=== PATIENT | female | born 1965 | race Caucasian/White ===

== ENCOUNTER 2018-05-20 14:32 | Emergency (ER) | payer OTHER ==
[2018-05-20] MEDS ORDERED: IPRATROPIUM/ALBUTEROL 3 ML DEYVIAL IH ONE (14:41)
--- NOTE | 2018-05-20 15:12 | EDPHY ---
H & P Stated Complaint: Last 2 nocs Time Seen by Provider: 05/20/18 14:55 HPI/ROS: Chief Complaint: Shortness of breath HPI: 52-year-old woman history of asthma presenting with worsening shortness of breath the last well days. Patient recently ran out of her control inhalers about 2 weeks ago. She saw her physician earlier this week and has a prescription for Advair waiting for her but is not been filled by the pharmacy.. She has had worsening shortness of breath today. She has been increasing use of her rescue inhaler. She does typically use a spacer when she is at home but does not happen at work. Today she has had worsening cough and tightness in her chest. Cough is nonproductive. No fevers or chills. No nausea or vomiting. No chest pain. ROS: 10 point Review of Systems is negative except as noted in the HPI. PMH: Asthma Social History: No smoking, no alcohol, no recreational drug use Family History: non-contributory Physical Exam: Gen: Awake, Alert, No Distress HEENT: Nose: no rhinorrhea Eyes: PERRLA, EOMI Mouth: Moist mucosa Neck: Supple, no JVD Chest: nontender, diffuse expiratory wheezing Heart: S1, S2 normal, no murmur Abd: Soft, non-tender, no guarding Back: no CVA tenderness, no midline tenderness Ext: no edema, non-tender Skin: no rash Neuro: CN II-XII intact, Sensation grossly intact, Strength 5/5 in bilateral upper and lower extremities - Medical/Surgical History Hx Asthma: Yes Hx Chronic Respiratory Disease: No Hx Diabetes: No Hx Cardiac Disease: No Hx Renal Disease: No Hx Cirrhosis: No Hx Alcoholism: No Hx HIV/AIDS: No Hx Splenectomy or Spleen Trauma: No Other PMH: Med hx-asthma Constitutional: Initial Vital Signs Temperature (C) 37.0 C 05/20/18 14:44 Heart Rate 102 H 05/20/18 14:44 Respiratory Rate 16 05/20/18 14:44 Blood Pressure 126/87 H 05/20/18 14:44 O2 Sat (%) 95 05/20/18 14:44 O2 Delivery Mode Room Air Allergies/Adverse Reactions: NSAIDS (Non-Steroidal Anti-Inflamma Allergy (Verified 05/20/18 14:38) Penicillins Allergy (Verified 05/20/18 14:39) Ntoohds-Mhx-Jkq Reductase Inhibitor Allergy (Verified 05/20/18 14:39) Home Medications: Medication Instructions Recorded Advair 250/50 (*) 05/20/18 Dymista Nasal [place] 05/20/18 Symbicort 80-4.5 Mcg Inhaler 05/20/18 Ventolin Hfa 05/20/18 Zyrtec 05/20/18 predniSONE 60 mg PO DAILY #9 tab 05/20/18 Medical Decision Making ED Course/Re-evaluation: Patient is feeling significantly improved after DuoNeb. Lungs are clear. She says she feels at her baseline. She has confirmed that the pharmacy now has her Advair and her Singulair in stock. Given her exacerbation on a put on a 3 day course of prednisone until her Advair has a chance to take full effect again. I have also given her spacer for use while she is out of the house. She will follow up with primary care physician for any concerns, she will return if her breathing should worsen. Patient questions have been answered. She is in full agreement with the plan. - Data Points Medications Given: Discontinued Medications Albuterol/Ipratropium (Duoneb) 3 ml EDNOW ONE Stop: 05/20/18 14:42 Last Admin: 05/20/18 14:46 Dose: 3 ml Departure - Departure Disposition: Home, Routine, Self-Care Clinical Impression: Exacerbation of asthma Condition: Good Instructions: Asthma (ED) Additional Instructions: Please use a spacer every time you use your inhaler. You may resume your normal medications. Please complete a 3 day course of prednisone as prescribed. Return to the emergency department for increasing shortness of breath, fevers, cough, or any other concerns. Referrals: Hoa Hogan, OPERATIONS RESEARCH ANALYST [Primary Care Provider] - As per Instructions Prescriptions: predniSONE 60 mg PO DAILY #9 tab
[2018-05-20 15:22] VITALS: BP 103/69
== END 2018-05-20 15:21 | disposition home or self-care (01) ==
LOC: CED 14:32
DX: J45.901 Unspecified asthma with (acute) exacerbation (principal)

== ENCOUNTER 2019-04-18 00:33 | Emergency (ER) | payer OTHER ==
[2019-04-18] MEDS ORDERED: NS 1,000 ML IV ONE (01:35)
--- NOTE | 2019-04-18 01:42 | EDPHY ---
H & P Stated Complaint: Chest tighness tonight a few hours ago. Ongoing palpitations since 1 week Time Seen by Provider: 04/18/19 00:44 HPI/ROS: CC: Chest tightness x 3.5 hours HPI: This 53-year-old female with past medical history of asthma and PACs as well as chronic pain presents to emergency department tonight complaining of chest tightness that started at approximately 9:00 p.m. this evening. It was in her mid chest and she rated it at 2 to 3/10. It was a squeezing sensation. She felt slightly short of breath. She had intermittent sweating. She has chronic left bicep pain and noticed that this evening as well but does not know if it was associated with the pain. By left in p.m. She began to get worried and asked her to bring her to the emergency room. She has been having more fluttering in her chest for the last week and especially so over this weekend. She does note that she started using a different type of CBD oil containing a small amount of THC which her noted was 100 time stronger than what she had been taking. She was taking this twice a day and thought this might be contributing to the increased PACs and therefore discontinued yesterday. She also took a new multivitamin turmeric supplement a couple times of this week. She has not been ill recently although her children have been sick, 1 with strep and 1 with a GI infection. She ate dinner at 6:30 a.m. This evening consisting of some dried tomatoes over chicken with a cold neck cream sauce but states she has had this many times and she does not get heartburn. She has no new calf pain or swelling and no recent travel. She has alcohol 2-3 times per week her last alcoholic beverage a couple of days ago. She drinks multiple servings of caffeinated beverages per day. REVIEW OF SYSTEMS: Constitutional: No fever, no chills. Eyes: No discharge. ENT: No sore throat. Respiratory: No cough. See HPI. Cardiac: See HPI. Gastrointestinal: No abdominal pain, no vomiting. Genitourinary: No dysuria. Musculoskeletal: Chronic pain. Skin: No rashes. Neurological: No headache. Source: Patient, Family ([facility]) Exam Limitations: No limitations - Personal History LMP (Females 10-55): Post Menopausal Current Tetanus/Diphtheria Vaccine: Unsure Current Tetanus Diphtheria and Acellular Pertussis (TDAP): Unsure - Medical/Surgical History PMH: PMH: Includes asthma, seasonal allergies, chronic pain, mild anterior wedge compression of T12, multiple orthopedic surgeries PSH: Includes multiple shoulder surgeries (8 on the right and 3 on the left), 2 ankle surgeries, a uterine ablation and tonsillectomy FH: Adopted/unknown Allergies: Nonsteroidal anti-inflammatories, penicillin, nystatin Medications include hormone replacement therapy, albuterol, Advair, a nasal spray, Singulair, Zyrtec, CBD or oil recently replaced with a CBD oil with THC 1 week ago which is 100 time stronger than the 1 she had been taking. She discontinued this yesterday. An occasional turmeric/MVI supplement take earlier this week. Social: Denies tobacco use, occasional alcohol use 2-3 beverages per week her last alcoholic beverage was approximately 3 days ago. No marijuana inhalation or other recreational drug use. She does use CBD while with THC in it as mentioned above. She drinks 2 and half to 4 caffeinated beverages per day. PCP: Hoa Hogan VICE PRESIDENT SAFETY at [facility] Hx Asthma: Yes Hx Chronic Respiratory Disease: No Hx Diabetes: No Hx Cardiac Disease: No Hx Renal Disease: No Hx Cirrhosis: No Hx Alcoholism: No Hx HIV/AIDS: No Hx Splenectomy or Spleen Trauma: No Other PMH: asthma, hormone therapy, Bilateral shoulder rotator cuffs # multiple times, fractured ankle, Celiac, chronic pain using CBD, tonsillectomy, uterine ablation. - Social History Smoking Status: Never smoked - Physical Exam Exam: General Appearance: Alert, no distress. Eyes: Pupils equal and round no pallor or injection. ENT, Mouth: Mucous membranes are moist. No erythema or exudate. Respiratory: There are no retractions, lungs are clear to auscultation. Cardiovascular: Regular rate and rhythm. No murmurs, gallops or rubs. Gastrointestinal: Abdomen is soft and nontender, no masses, bowel sounds normal. Neurological: Awake and alert, sensory and motor exams grossly normal. Skin: Warm and dry, no rashes. Musculoskeletal: Neck is supple, nontender, no masses, no JVD. Extremities are symmetrical, full range of motion. No calf tenderness, swelling , warmth, cords, or erythema. Psychiatric: Patient is oriented X 3, there is no agitation. DIFFERENTIAL DIAGNOSIS: After history and physical exam differential diagnosis was considered for but not limited to and in no particular order: cardiac ischemia, angina, biliary colic, pancreatitis, pericarditis, myocarditis, pulmonary embolism, PACs, PVCs, asthma, drug/supplement side effect, GERD, PUD Constitutional: Initial Vital Signs Temperature (C) 98.6 F 04/18/19 00:40 Heart Rate 99 04/18/19 00:40 Respiratory Rate 18 04/18/19 00:40 Blood Pressure 171/90 H 04/18/19 00:40 O2 Sat (%) 98 04/18/19 00:40 O2 Delivery Mode Room Air Allergies/Adverse Reactions: NSAIDS (Non-Steroidal Anti-Inflamma Allergy (Intermediate, Verified 04/18/19 01: 09) Qdrigaw-Zjv-Kdj Reductase Inhibitor Allergy (Intermediate, Verified 04/18/19 01: 09) Hives Penicillins Allergy (Mild, Verified 04/18/19 01:09) Rash Home Medications: Medication Instructions Recorded Advair 250/50 (*) 05/20/18 Dymista Nasal [place] 05/20/18 Symbicort 80-4.5 Mcg Inhaler 05/20/18 Ventolin Hfa 05/20/18 Zyrtec 05/20/18 Combipatch 0.05-0.14 mg Ptch 04/18/19 Homone Replacement Therapy 04/18/19 Medical Decision Making - Diagnostics EKG Interpretation: NSR; HR 83; normal intervals; no acute ischemic changes. Imaging: I viewed and interpreted images myself (No acute cardiopulmonary process; moderate upper abdominal bowel gas; again noted mild anterior wedge compression T12;) ED Course/Re-evaluation: The patient was seen and examined. Vital signs reviewed. Initially her blood pressure was 171/90 but this came down upon the next reading to 127/76. Her heart rate was in the 80s throughout, and her oxygen saturation was 99-100%. EKG upon arrival showed a normal sinus rhythm with a heart rate of 83 and no acute ischemic changes. Rhythm strips showed an occasional pause and occasional PACs. CBC was unremarkable with the exception of a slightly elevated MCV, MCH, and eosinophils. Comprehensive metabolic panel was significant for creatinine of 1.5 which is elevated from the most recent creatinine from February 2019 which was normal as were the prior to readings as well. This may be due to the supplements that she has been taking recently. She was given a L of fluids and advised that should be recheck with her primary care provider at her follow-up appointment. Her troponin was 0.00. She had a recent TSH in February of this year which was normal. Lipase normal. A chest x- ray showed no acute cardiopulmonary process. She did have some prominent upper abdominal bowel gas and a previously noted mild anterior wedge compression of T12. Lengthy discussion of the differential diagnosis was undertaken with the patient and her . She was given the heart score handout and has elected to be discharged and follow up with her primary care provider this week. I have advised her that she may need a stress test, an echocardiogram, a Holter monitor or event monitor or or other evaluations as clinically indicated and decided upon by her primary care provider or specialist. - Data Points Laboratory Results: 04/18/19 04/18/19 04/18/19 00:53 00:51 00:47 POC Sodium 138 mEq/L mEq/L (135-145) POC Potassium 4.6 mEq/L mEq/L (3.3-5.0) POC Chloride 112.0 mEq/L H mEq/L (97-110) POC Total CO2 27 mEq/L mEq/L (22-31) POC BUN 14 mg/dL mg/dL (7-23) POC Creatinine 1.5 mg/dL H mg/dL (0.6-1.0) POC Glucose 108 mg/dL H mg/dL (70-100) POC Calcium 9.8 mg/dL mg/dL (8.5-10.4) POC Total Bilirubin 0.7 mg/dL mg/dL (0.1-1.4) POC AST 19 IU/L IU/L (14-46) POC ALT 18 IU/L IU/L (9-52) POC Alk Phosphatase 37 IU/L L IU/L (38-126) POC Troponin I 0.00 ng/mL ng/mL (0.00-0.08) POC Total Protein 6.9 g/dL g/dL (6.3-8.2) POC Albumin 4.5 g/dL g/dL (3.5-5.0) Lipase 111 IU/L IU/L (23-300) Medications Given: Discontinued Medications Sodium Chloride (Ns) 1,000 mls @ 0 mls/hr IV EDNOW ONE; Wide Open PRN Reason: Protocol Stop: 04/18/19 01:36 Last Admin: 04/18/19 01:45 Dose: 1,000 mls Point of Care Test Results: CBC CBC Collection Date 04/18/19 CBC Collection Time 00:54 WBC 7.80 RBC 4.48 HGB 15.3 HCT 45.0 PLT 212 Neut # 3.88 Neut 49.7 LYMPH # 2.79 LYMPH 35.8 MCV 100.4 Chemistry 04/18/19 04/18/19 00:53 00:51 POC Sodium 138 mEq/L mEq/L (135-145) POC Potassium 4.6 mEq/L mEq/L (3.3-5.0) POC Chloride 112.0 mEq/L H mEq/L (97-110) POC Total CO2 27 mEq/L mEq/L (22-31) POC BUN 14 mg/dL mg/dL (7-23) POC Creatinine 1.5 mg/dL H mg/dL (0.6-1.0) POC Glucose 108 mg/dL H mg/dL (70-100) POC Calcium 9.8 mg/dL mg/dL (8.5-10.4) POC Total Bilirubin 0.7 mg/dL mg/dL (0.1-1.4) POC AST 19 IU/L IU/L (14-46) POC ALT 18 IU/L IU/L (9-52) POC Alk Phosphatase 37 IU/L L IU/L (38-126) POC Troponin I 0.00 ng/mL ng/mL (0.00-0.08) POC Total Protein 6.9 g/dL g/dL (6.3-8.2) POC Albumin 4.5 g/dL g/dL (3.5-5.0) Departure - Departure Disposition: Home, Routine, Self-Care Clinical Impression: PAC (premature atrial contraction), Creatinine elevation Chest pain Qualifiers: Chest pain type: unspecified Qualified Code(s): R07.9 - Chest pain, unspecified Condition: Good Instructions: Chest Pain (ED), Premature Atrial Contractions (ED) Additional Instructions: Call your primary care provider for follow up in the next 1 -2 days. You will need your creatinine rechecked. Your provider may consider a stress test, echocardiogram, holter or event monitor, or other work up. Return to the ER immediately if you have any further problems or concerns as discussed. Referrals: Hoa Hogan NP [Certified Nurse Practioner] - 2-3 days, call for appt.
--- NOTE | 2019-04-18 02:17 | CPEKG ---
Test Reason : OPEN Blood Pressure : / mmHG Vent. Rate : 083 BPM Atrial Rate : 082 BPM P-R Int : 125 ms QRS Dur : 093 ms QT Int : 346 ms P-R-T Axes : 055 078 037 degrees QTc Int : 407 ms Sinus rhythm Confirmed by Kelly Santiago ([id number] on 04/18/2019 2:16:55 AM Referred By: Kelly Santiago Confirmed By:Kelly Santiago
[2019-04-18 02:28] VITALS: BP 133/80
== END 2019-04-18 02:37 | disposition home or self-care (01) ==
LOC: CED 00:33
DX: I49.1 Atrial premature depolarization (principal); R79.89 Other specified abnormal findings of blood chemistry; E86.9 Volume depletion, unspecified
CPT/HCPCS: 71046-PO; 80053-ER; 84484-ER; 85025-QW-ER; 96360-ER; 99285-ER